=== PATIENT | male | born 1990 ===

== ENCOUNTER 2017-01-20 10:01 | Emergency (ER) | payer BC ==
[2017-01-20 10:04] VITALS: BMI 21.5
[2017-01-20 10:06] VITALS: BP 134/82; PULSE 90; RESP 16; TEMP 98.2; O2SAT 100
--- NOTE | 2017-01-20 10:20 | C.PDOC ---
History Of Present Illness 27M c/o right lower tooth pain for the last several days. no fever, chills, nausea, or vomiting. he had similar sx a few months ago and says he improved at that time with abx but he never followed up with a dentist as advised at that time. Time Seen by Provider: 01/20/17 10:20 Chief Complaint (Nursing): Dental Pain Past Medical History Vital Signs: Last Vital Signs Temp 98.2 F 01/20/17 10:05 Pulse 90 01/20/17 10:05 Resp 16 01/20/17 10:05 BP 134/82 01/20/17 10:05 Pulse Ox 100 01/20/17 10:47 Family History: States: Other Other Family History: nc - Social History Hx Alcohol Use: Yes Hx Substance Use: Yes - Immunization History Hx Tetanus Toxoid Vaccination: Yes Hx Influenza Vaccination: Yes Hx Pneumococcal Vaccination: Yes Review Of Systems Constitutional: Negative for: Fever, Chills, Weakness, Malaise ENT: Negative for: Throat Swelling Cardiovascular: Negative for: Chest Pain Respiratory: Negative for: Shortness of Breath Gastrointestinal: Negative for: Nausea, Vomiting Neurological: Negative for: Headache Physical Exam - Physical Exam Appears: Non-toxic, No Acute Distress Tongue: No Swelling Lips: No Swelling Gingiva: No Erythema, No Abscess, Other (tenderness along lower right rear molar. no trismus. handling secretions well. normal phonation. no submental or sublingual induration. no evidence of abscess.) Throat: No Erythema, No Exudate Neck: Normal ROM, No Supple Neurological/Psych: Oriented x3, Other (no focal deficits) ED Course And Treatment O2 Sat by Pulse Oximetry: 100 Disposition - Disposition Referrals: Roseline Fishman MD [Primary Care Provider] - Disposition: HOME/ ROUTINE Disposition Time: 10:46 Condition: STABLE Additional Instructions: Please follow up with a dentist this week. Take medication as directed. Return to the ER for any worsening symptoms, fever, or for any other concerns. Prescriptions: Clindamycin [Cleocin] 300 mg PO Q6H #40 cap Naproxen [Naprosyn] 500 mg PO Q12H PRN #10 tablet PRN Reason: Pain, Moderate (4-7) Instructions: Toothache (ED) Forms: General Discharge Instructions, Work Excuse - Clinical Impression Clinical Impression: Pain, dental
--- NOTE | 2017-01-20 10:34 | C.PDOC ---
History Of Present Illness A 27 year old male presents to the emergency room with complaints of right lower molar pain for the last week. Patient reports he has not taken anything for pain at home. Patient states that he has been seen in the ER for the same pain a few months ago, but never followed up with a dentist. Patient denies any fever, headaches, mouth swelling, or any other complaints, Time Seen by Provider: 01/20/17 10:20 Chief Complaint (Nursing): Dental Pain History Per: Patient History/Exam Limitations: no limitations Onset/Duration Of Symptoms: Other (1 week) Current Symptoms Are (Timing): Still Present Severity: Mild Recent travel outside of the [place]: No Past Medical History Reviewed: Historical Data, Nursing Documentation, Vital Signs Vital Signs: Last Vital Signs Temp 98.2 F 01/20/17 10:05 Pulse 90 01/20/17 10:05 Resp 16 01/20/17 10:05 BP 134/82 01/20/17 10:05 Pulse Ox 100 01/20/17 10:34 Family History: States: Unknown Family Hx - Social History Hx Alcohol Use: Yes Hx Substance Use: Yes - Immunization History Hx Tetanus Toxoid Vaccination: Yes Hx Influenza Vaccination: Yes Hx Pneumococcal Vaccination: Yes Review Of Systems Except As Marked, All Systems Reviewed And Found Negative. Constitutional: Negative for: Fever, Chills ENT: Positive for: Mouth Pain (Right lower molar pain ). Negative for: Mouth Swelling Gastrointestinal: Negative for: Nausea, Vomiting, Diarrhea Neurological: Negative for: Headache, Dizziness Physical Exam - Physical Exam Appears: Well, Non-toxic Skin: Normal Color, Warm, Dry, No Rash Head: Atraumatic, Normacephalic Oral Mucosa: Moist Tongue: Normal Appearing, No Swelling Lips: Normal Appearing, No Swelling Teeth: Normal Dentition Gingiva: No Erythema, No Abscess, No Other (No fluctuance. No signs of abscess) ED Course And Treatment O2 Sat by Pulse Oximetry: 100 Disposition - Disposition Referrals: Roseline Fishman MD [Primary Care Provider] - Disposition: HOME/ ROUTINE Disposition Time: 10:34 Condition: STABLE Additional Instructions: Please follow up with a dentist this week. Take medication as directed. Return to the ER for any worsening symptoms, fever, or for any other concerns. Prescriptions: Clindamycin [Cleocin] 300 mg PO Q6H #40 cap Naproxen [Naprosyn] 500 mg PO Q12H PRN #10 tablet PRN Reason: Pain, Moderate (4-7) Instructions: Toothache (ED) Forms: General Discharge Instructions, Work Excuse - Clinical Impression Clinical Impression: Pain, dental - Scribe Statement The provider has reviewed the documentation as recorded by the Scribe Gregory Morgan All medical record entries made by the Jieibe were at my direction and personally dictated by me. I have reviewed the chart and agree that the record accurately reflects my personal performance of the history, physical exam, medical decision making, and the department course for this patient. I have also personally directed, reviewed, and agree with the discharge instructions and disposition.
== END 2017-01-20 10:46 | disposition home or self-care (01) ==
LOC: C.ER 10:01 → SUPCPDRO 10:01 → C.ER 10:46
DX: K08.89 Other specified disorders of teeth and supporting structures (principal)

== ENCOUNTER 2017-02-27 22:23 | Emergency (ER) | payer BC ==
[2017-02-27 22:24] VITALS: BMI 21.5
[2017-02-27 22:52] VITALS: BP 118/68; PULSE 83; RESP 14; TEMP 98.4; O2SAT 97
--- NOTE | 2017-02-27 23:39 | C.PDOC ---
History Of Present Illness 27 y/o male presents to ED with c/o back spasms for the last couple of months. Patient notes he has seen PMD for these symptoms w/o resolution of pain. Notes that he does a lot of bending at work. Patient reports spasms present to lower back, noting that episodes last 2-3 minutes before spontaneously resolving. Notes he has not tried any OTC medication. Currently has no pain or discomfort. Denies trauma, fever, chills, headache, neck pain, nausea, vomiting, abdominal pain, urinary or bowel incontinence, new weakness or numbness, or other complaints. Time Seen by Provider: 02/27/17 22:55 Chief Complaint (Nursing): Back Pain History Per: Patient History/Exam Limitations: no limitations Onset/Duration Of Symptoms: Days Current Symptoms Are (Timing): Still Present Quality Of Discomfort: "Pain" Previous Symptoms: None Associated Symptoms: denies: Incontinence, New Weakness, New Numbness Recent travel outside of the [place]: No Past Medical History Reviewed: Historical Data, Nursing Documentation, Vital Signs Vital Signs: Last Vital Signs Temp 98.4 F 02/27/17 22:49 Pulse 83 02/27/17 22:49 Resp 14 02/27/17 22:49 BP 118/68 02/27/17 22:49 Pulse Ox 97 02/28/17 00:36 - Medical History PMH: No Chronic Diseases Family History: States: Unknown Family Hx - Social History Hx Alcohol Use: Yes Hx Substance Use: Yes - Immunization History Hx Tetanus Toxoid Vaccination: Yes Hx Influenza Vaccination: Yes Hx Pneumococcal Vaccination: Yes Review Of Systems Except As Marked, All Systems Reviewed And Found Negative. Constitutional: Negative for: Fever, Chills Cardiovascular: Negative for: Chest Pain Respiratory: Negative for: Cough, Shortness of Breath Gastrointestinal: Negative for: Nausea, Vomiting, Abdominal Pain Genitourinary: Negative for: Dysuria, Frequency, Incontinence, Hematuria Musculoskeletal: Positive for: Back Pain. Negative for: Neck Pain, Leg Pain Skin: Negative for: Rash Neurological: Negative for: Weakness, Numbness, Headache, Dizziness Physical Exam - Physical Exam Appears: Non-toxic, No Acute Distress Skin: Normal Color, Warm, Dry, No Ecchymosis Head: Atraumatic, Normacephalic Eye(s): bilateral: Normal Inspection, EOMI Nose: Normal Oral Mucosa: Moist Neck: Normal ROM, No Midline Cervical Tenderness, No Paracervical Tenderness, No Step Off Deformity, Supple Chest: Symmetrical, No Tenderness Cardiovascular: Rhythm Regular Respiratory: Normal Breath Sounds, No Rales, No Rhonchi, No Wheezing Gastrointestinal/Abdominal: Soft, No Tenderness, No Distention, No Guarding, No Rebound Back: Normal Inspection, No Vertebral Tenderness, No Muscle Spasm, No Paraspinal Tenderness Extremity: Normal ROM, Capillary Refill (< 2 sec.) Extremity: Bilateral: Normal Color And Temperature Pulses: Left Dorsalis Pedis: Normal, Right Dorsalis Pedis: Normal Neurological/Psych: Oriented x3, Normal Speech, Normal Cognition, Normal Motor, Normal Sensation Gait: Steady ED Course And Treatment O2 Sat by Pulse Oximetry: 97 (RA) Pulse Ox Interpretation: Normal - Other Rad LS Spine XR X-Ray: Interpreted by Me Interpretation: negative for fx or dislocation Progress Note: X-ray ordered and reviewed, negative for acute bony abnormality. Treated with Flexeril. On reassessment, patient is in no acute distress, with improvement of back pain. Patient has no bony tenderness, extremity numbness or weakness, or abdominal pain. Patient is ambulatory in the emergency department with no apparent distress. Patient was advised to follow up with PMD/clinic in 1 -2 days. Disposition - Disposition Disposition: HOME/ ROUTINE Disposition Time: 23:37 Condition: STABLE Additional Instructions: Please follow up with your fixed income analyst or clinic in 2-5 days for further evaluation. Return to the emergency department at any time if symptoms persist or worsen. 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 - Scribe Statement The provider has reviewed the documentation as recorded by the Raghu DUBOIS All medical record entries made by the Raghu were at my direction and personally dictated by me. I have reviewed the chart and agree that the record accurately reflects my personal performance of the history, physical exam, medical decision making, and the department course for this patient. I have also personally directed, reviewed, and agree with the discharge instructions and disposition.
--- NOTE | 2017-02-28 10:13 | RAD ---
Lumbar spine three views History: Back pain. Comparison: None available. Findings: Study somewhat limited by patient positioning and technique particularly on the lateral view. Repeat study may be helpful. Patient rotated on the frontal view with a questionable minimal dextroscoliotic curvature of the mid lumbar spine. Few inferior endplate concavities at the L3, L4, and L5 vertebral bodies. Milder superior endplate concavities at the L1, L2, and L3 vertebral bodies which may be exaggerated by patient positioning. Again repeat study may be helpful. Impression: Study somewhat limited by patient positioning and technique particularly on the lateral view. Repeat study may be helpful. Patient rotated on the frontal view with a questionable minimal dextroscoliotic curvature of the mid lumbar spine. Few inferior endplate concavities at the L3, L4, and L5 vertebral bodies. Milder superior endplate concavities at the L1, L2, and L3 vertebral bodies which may be exaggerated by patient positioning. Again repeat study may be helpful. If pain persists, consider repeat study and or correlation with MRI.
== END 2017-02-28 | disposition home or self-care (01) ==
LOC: C.ER 22:23
DX: M54.5 Low back pain (principal)

== ENCOUNTER 2018-03-18 23:41 | Emergency (ER) | payer BC ==
[2018-03-18 23:41] VITALS: BMI 21.5
[2018-03-18 23:58] VITALS: BP 108/68; PULSE 111; RESP 20; TEMP 98.8; O2SAT 96
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
== END 2018-03-19 00:44 | disposition home or self-care (01) ==
LOC: C.ER 23:41
DX: K02.9 Dental caries, unspecified (principal)